=== PATIENT | male | born 1980 | race Caucasian/White ===

== ENCOUNTER 2016-09-09 07:13 | Emergency (ER) | payer BC ==
[2016-09-09 07:26] VITALS: BP 128/88
--- NOTE | 2016-09-09 07:27 | UC ---
Throat Pain/Nasal Wiliam HPI - HPI Summary HPI Summary: The patient comes in today for: 1. Sore throat, body aches: Onset: 2 days. Palliative/provocative: Moving and swallowing makes it worse. Quality: Aches of the body, scratchy throat. Region: Throat, and general body ache. Severity: throat: 4/10, and body: 7/10 Time: Constant. Associated symptoms: Flu exposure: Strep exposure: and daughter just got off antibiotics for strep. Fevers: None. Dayquil taken yesterday, helped a "little bit." * - History of Current Complaint Stated Complaint: SORE THROAT,ACHY Time Seen by Provider: 09/09/16 07:21 Hx Obtained From: Patient - Allergies/Home Medications Allergies/Adverse Reactions: Allergies Allergy/AdvReac Type Severity Reaction Status Date / Time Amoxicillin Allergy Rash Verified 09/09/16 07:22 Phenobarbital Allergy Rash Verified 09/09/16 07:22 Codeine AdvReac Vomiting Verified 09/09/16 07:22 Home Medications: Home Medications Glimepiride (NF) 2 mg PO DAILY 09/09/16 [History Confirmed 09/09/16] PMH/Surg Hx/FS Hx/Imm Hx Previously Healthy: No Endocrine History Of: Reports: Diabetes Denies: Thyroid Disease, Hyperthyroidism, Hypothyroidism, Dyslipidemia Cardiovascular History Of: Denies: Cardiac Disorders, Hypertension, Pacemaker/ICD, Myocardial Infarction , Congestive Heart Failure, Atrial Fibrillation, Deep Vein Thrombosis, Bleeding Disorders Respiratory History Of: Denies: COPD, Asthma, Bronchitis, Pneumonia, Pulmonary Embolism GI/ History Of: Denies: Gastroesophageal Reflux, Ulcer, Gastrointestinal Bleed, Gall Bladder Disease, Kidney Stones, Diverticulitis, Renal Disease, Urosepsis Neurological History Of: Denies: TIA, CVA, Dementia, Seizures, Migraine Psychological History Of: Denies: Anxiety, Depression, Bipolar Disorder, Schizophrenia, Post Traumatic Stress Disorder Cancer History Of: Denies: Lung Cancer, Colorectal Cancer, Breast Cancer, Prostate Cancer, Cervical Cancer Other History Of: Negative For: HIV, Hepatitis B, Hepatitis C, Anticoagulant Therapy - Family History Known Family History: Positive: Cardiac Disease, Hypertension - Social History Occupation: Employed Full-time Lives: With Family Alcohol Use: Rare Substance Use Type: None Smoking Status (MU): Former Smoker Review of Systems Constitutional: Negative Skin: Negative Eyes: Negative ENT: Sore Throat, Nasal Discharge - Yellowish, mucous, but no sinus pressure. Respiratory: Negative, Cough - "Very little, dry." Cardiovascular: Negative Gastrointestinal: Negative Genitourinary: Negative All Other Systems Reviewed And Are Negative: Yes Physical Exam Triage Information Reviewed: Yes Appearance: Well-Appearing, No Pain Distress, Well-Nourished Vital Signs Reviewed: Yes Eyes: Positive: Conjunctiva Clear. Negative: Discharge ENT: Positive: Pharyngeal erythema. Negative: Nasal congestion, Nasal drainage , TM bulging, TM dull, TM red, Tonsillar swelling, Tonsillar exudate Dental: Negative: Gross Decay/Caries @, Dental Fracture @ Neck: Positive: Supple, Nontender, No Lymphadenopathy. Negative: Nuchal Rigidity Respiratory: Positive: Chest non-tender, Lungs clear, No respiratory distress, No accessory muscle use. Negative: Crackles, Wheezing Cardiovascular: Positive: RRR, No Murmur Abdomen Description: Positive: Nontender, No Organomegaly, Soft. Negative: Distended, Guarding Musculoskeletal: Positive: Strength Intact, ROM Intact, No Edema Neurological: Positive: Alert, Muscle Tone Normal Psychological: Positive: Age Appropriate Behavior, Consolable Skin: Negative: rashes, breakdown Diagnostics - Laboratory Diagnostic Studies Completed/Ordered: Strep: (+). Flu: (-) Throat Pain/Nasal Course/Dx - Differential Dx/Diagnosis Differential Diagnosis/HQI/PQRI: Laryngitis, Pharyngitis, Tonsillitis Provider Diagnoses: Strep pharyngitis Discharge - Discharge Plan Condition: Stable Disposition: HOME Patient Education Materials: Strep Throat (ED) Additional Instructions: Please see your primary care provider as needed. If you have any problems, be seen again at that time.
== END 2016-09-09 07:57 | disposition home or self-care (01) ==
LOC: UCCORT 07:13
DX: J02.0 Streptococcal pharyngitis (principal); E11.9 Type 2 diabetes mellitus without complications; Z87.891 Personal history of nicotine dependence
CPT/HCPCS: 87502; 87651; 99202; G0463

== ENCOUNTER 2017-06-18 19:03 | Emergency (ER) | payer BC ==
[2017-06-18 19:44] VITALS: BP 146/90
--- NOTE | 2017-06-18 20:15 | UC ---
Laceration HPI - HPI Summary HPI Summary: pt c/o laceration to palm of right hand. Bleeding controlled prior to arrival at clinic - History Of Current Complaint Chief Complaint: UCLaceration Stated Complaint: RIGHT PALM LAC Time Seen by Provider: 06/18/17 19:44 Hx Obtained From: Patient Laceration Location: Hand Mechanism Of Injury: Sharp Trauma Onset/Duration: Sudden Onset Severity: Mild Related History: Dominant Hand Right - Allergies/Home Medications Allergies/Adverse Reactions: Allergies Allergy/AdvReac Type Severity Reaction Status Date / Time Amoxicillin Allergy Rash Verified 06/18/17 19:43 Phenobarbital Allergy Rash Verified 06/18/17 19:43 Codeine AdvReac Vomiting Verified 06/18/17 19:43 PMH/Surg Hx/FS Hx/Imm Hx Previously Healthy: Yes Other History Of: Negative For: HIV, Hepatitis B, Hepatitis C, Anticoagulant Therapy - Surgical History Surgical History: Yes Surgery Procedure, Year, and Place: Left Knee Arthroscopy, ~1995; Pyloric Stenosis as an infant - Family History Known Family History: Positive: Cardiac Disease, Hypertension - Social History Occupation: Employed Full-time Lives: With Family Alcohol Use: Occasionally Substance Use Type: None Smoking Status (MU): Former Smoker Type: Cigarettes Amount Used/How Often: 1/2 PPD Length of Time of Smoking/Using Tobacco: 6 Years Have You Smoked in the Last Year: No - Immunization History Most Recent Influenza Vaccination: yes 2016 Vaccination Up to Date: Yes Review of Systems Constitutional: Negative Skin: Other - laceration right palm Eyes: Negative ENT: Negative Respiratory: Negative Cardiovascular: Negative Gastrointestinal: Negative Genitourinary: Negative Motor: Negative Neurovascular: Negative Musculoskeletal: Negative Neurological: Negative Psychological: Negative Is Patient Immunocompromised?: No All Other Systems Reviewed And Are Negative: Yes Physical Exam Triage Information Reviewed: Yes Appearance: Well-Appearing Vital Signs: Initial Vital Signs Temp 97.7 F 06/18/17 19:39 Pulse 82 06/18/17 19:39 Resp 18 06/18/17 19:39 BP 146/90 06/18/17 19:39 Pulse Ox 97 06/18/17 19:39 Vital Signs Reviewed: Yes Eye Exam: Normal ENT Exam: Normal Dental Exam: Normal Neck exam: Normal Respiratory: Positive: No respiratory distress Musculoskeletal Exam: Normal Neurological Exam: Normal Psychological Exam: Normal Skin Exam: Other - laceration right hand palm Laceration Repair - Laceration Repair 1 Description: Linear Laceration Size After Repair: Length (cm) - 2, Width (mm) - 2, Depth (mm) - 1 Modified For Repair: No Irrigation With Pressure Irrigation Device: Yes Closure Material: Skin Adhesive Closure Method: Single Layer Suture Of: Skin Laceration Course/Dx - Differential Dx - Laceration/Wound Differental Diagnoses: Laceration Provider Diagnoses: lacertion repair to right hand, palm, with skin adhesive. Discharge - Discharge Plan Condition: Stable Disposition: HOME Patient Education Materials: Skin Adhesive Care (ED) Referrals: Abigail Javier NP [Primary Care Provider] - If Needed
== END 2017-06-18 20:23 | disposition home or self-care (01) ==
LOC: UCCORT 19:03
DX: S61.411A Laceration without foreign body of right hand, initial encounter (principal); W45.8XXA Other foreign body or object entering through skin, initial encounter; Y93.9 Activity, unspecified; Y92.9 Unspecified place or not applicable; Z88.1 Allergy status to other antibiotic agents; Z88.5 Allergy status to narcotic agent; Z88.8 Allergy status to other drugs, medicaments and biological substances; Z87.891 Personal history of nicotine dependence
CPT/HCPCS: 12001; 99212; G0463

== ENCOUNTER 2017-12-11 09:11 | Emergency (ER) | payer BC ==
[2017-12-11 09:28] VITALS: BP 149/94
--- NOTE | 2017-12-11 10:03 | UC ---
Abdominal Pain Male HPI - HPI Summary HPI Summary: Daughter had vomiting and diarrhea a few days ago. He now has diarrhea starting yesterday but no vomiting. No fever, no blood in stool. There is discomfort and "tightness" all day in the periumbilical area. No prior medical problems except pyloric stenosis as a child. - History of Current Complaint Chief Complaint: UCGI Stated Complaint: GASTRO COMP Time Seen by Provider: 12/11/17 09:46 Hx Obtained From: Patient Onset/Duration: Gradual Onset, Lasting Hours Timing: Constant Severity Initially: Severe Severity Currently: Severe - Pain is not severe but diarrhea is quite frequent. Pain Intensity: 5 Location: Other - jailyn umbilical. Character: Aching, Colicy, Cramping, Dull Aggravating Factor(s): Nothing Alleviating Factor(s): Nothing Associated Signs And Symptoms: Positive: Decreased Appetite, Nausea, Diarrhea. Negative: Fever, Cough, Chest Pain, Urinary Symptoms, Vomiting - Allergies/Home Medications Allergies/Adverse Reactions: Allergies Allergy/AdvReac Type Severity Reaction Status Date / Time amoxicillin Allergy Rash Verified 12/11/17 09:23 codeine Allergy Vomiting Verified 12/11/17 09:23 phenobarbital Allergy Rash Verified 12/11/17 09:23 Home Medications: Home Medications Cetirizine* [ZyrTEC 10 MG TAB*] 10 mg PO DAILY 12/11/17 [History Confirmed 12/11] PMH/Surg Hx/FS Hx/Imm Hx Previously Healthy: Yes Other History Of: Negative For: HIV, Hepatitis B, Hepatitis C, Anticoagulant Therapy - Surgical History Surgical History: Yes Surgery Procedure, Year, and Place: Left Knee Arthroscopy, ~1995; Pyloric Stenosis as an - Family History Known Family History: Positive: Cardiac Disease, Hypertension - Social History Lives: With Family Alcohol Use: Rare Substance Use Type: None Smoking Status (MU): Former Smoker Type: Cigarettes Amount Used/How Often: 1/2 PPD Length of Time of Smoking/Using Tobacco: 6 Years Have You Smoked in the Last Year: No - Immunization History Most Recent Influenza Vaccination: yes 2017 Vaccination Up to Date: Yes Review of Systems Gastrointestinal: Diarrhea All Other Systems Reviewed And Are Negative: Yes Physical Exam Triage Information Reviewed: Yes Appearance: Well-Nourished - Non toxic. Vital Signs: Initial Vital Signs Temp 99.9 F 12/11/17 09:22 Pulse 108 12/11/17 09:22 Resp 22 12/11/17 09:22 BP 149/94 12/11/17 09:22 Pulse Ox 98 12/11/17 09:22 Vital Signs Reviewed: Yes Eye Exam: Normal Eyes: Positive: Conjunctiva Clear. Negative: Conjunctiva Inflamed ENT: Positive: Hearing grossly normal, Pharynx normal Neck exam: Normal Neck: Positive: Supple, Nontender, No Lymphadenopathy. Negative: Nuchal Rigidity Respiratory: Positive: Lungs clear, Normal breath sounds, No respiratory distress, No accessory muscle use. Negative: Respiratory distress, Decreased breath sounds, Accessory muscle use, Crackles, Rhonchi, Stridor Cardiovascular: Positive: No Murmur, Pulses Normal, Brisk Capillary Refill Abdominal Exam: Other - diffuse mild appearing tenderness worse in the hypogastric area. Abdomen Description: Positive: Soft. Negative: CVA Tenderness (R), CVA Tenderness (L), Distended, Guarding Musculoskeletal: Positive: Strength Intact, ROM Intact, No Edema Neurological: Positive: Alert, Muscle Tone Normal. Negative: Fatigued Psychological: Positive: Age Appropriate Behavior Skin: Negative: rashes Abd Pain Male Course/Dx - Course Course Of Treatment: NO vomiting. Mucous membranes moist. We discussed oral re hydration techniques and fluids. No vomiting. Tylenol, bentyl, pepto bismol, zofran. He agrees to return tomorrow if not better. - Differential Dx/Clinical Impression Provider Diagnoses: diarrhea. abdominal pain Discharge - Sign-Out/Discharge Documenting (check all that apply): Discharge/Admit/Transfer - Discharge Plan Condition: Good Disposition: HOME Patient Education Materials: Acute Diarrhea (ED) Forms: *Work Release Referrals: Abigail Javier NP [Primary Care Provider] - Additional Instructions: Tylenol and peptobismol over the counter. Water mixed with gatorade 1 sip every minute all day. - Billing Disposition and Condition Condition: GOOD Disposition: HOME
== END 2017-12-11 10:08 | disposition home or self-care (01) ==
LOC: UCCORT 09:11
DX: Z88.5 Allergy status to narcotic agent (principal); Z88.0 Allergy status to penicillin; Z88.8 Allergy status to other drugs, medicaments and biological substances
CPT/HCPCS: 99212; G0463

== ENCOUNTER 2018-05-05 07:24 | Emergency (ER) | payer BC ==
[2018-05-05 07:36] VITALS: BP 146/89
--- NOTE | 2018-05-05 08:16 | UC ---
Throat Pain/Nasal Wiliam HPI - HPI Summary HPI Summary: The patient is a 37-year-old male with a history of seasonal allergic rhinitis. He takes Zyrtec for his symptoms. Over the past few days he has had a marked worsening of symptoms with severe sinus pressure and pain. He felt feverish over the weekend. He has had no chest pain or shortness of breath. He is a diabetic. - History of Current Complaint Chief Complaint: UCGeneralIllness Stated Complaint: SINUS COMPLAINT Time Seen by Provider: 05/05/18 07:54 Hx Obtained From: Patient Onset/Duration: Gradual Onset, Lasting Days Severity: Mild Pain Intensity: 3 Pain Scale Used: 0-10 Numeric Cough: Nonproductive Associated Signs & Symptoms: Positive: Negative Related History: Seasonal Allergies - Epiglottits Risk Factors Epiglottis Risk Factors: Negative - Allergies/Home Medications Allergies/Adverse Reactions: Allergies Allergy/AdvReac Type Severity Reaction Status Date / Time amoxicillin Allergy Rash Verified 05/05/18 07:34 codeine Allergy Vomiting Verified 05/05/18 07:34 phenobarbital Allergy Rash Verified 05/05/18 07:34 Home Medications: Home Medications Dm/Acetaminophen/Doxylamine [Night Time Multi-Symptom] 2 cap PO ONCE 05/05/18 [ History Confirmed 05/05/18] PMH/Surg Hx/FS Hx/Imm Hx Previously Healthy: Yes Endocrine History: Diabetes Other History Of: Negative For: HIV, Hepatitis B, Hepatitis C, Anticoagulant Therapy - Surgical History Surgical History: Yes Surgery Procedure, Year, and Place: Left Knee Arthroscopy, ~1995; Pyloric Stenosis as an infant - Family History Known Family History: Positive: Cardiac Disease, Hypertension, Diabetes - Social History Alcohol Use: None Substance Use Type: None Smoking Status (MU): Former Smoker Type: Cigarettes Amount Used/How Often: 1/2 PPD Length of Time of Smoking/Using Tobacco: 6 Years Have You Smoked in the Last Year: No - Immunization History Most Recent Influenza Vaccination: yes 2017 Vaccination Up to Date: Yes Review of Systems Constitutional: Negative Skin: Negative Eyes: Negative ENT: Nasal Discharge, Sinus Congestion, Sinus Pain/Tenderness Respiratory: Negative Cardiovascular: Negative Gastrointestinal: Negative Genitourinary: Negative Motor: Negative Neurovascular: Negative Musculoskeletal: Negative Neurological: Negative Psychological: Negative Is Patient Immunocompromised?: No All Other Systems Reviewed And Are Negative: Yes Physical Exam Triage Information Reviewed: Yes Appearance: Well-Appearing, No Pain Distress, Well-Nourished Vital Signs: Initial Vital Signs Temp 97.2 F 05/05/18 07:30 Pulse 88 05/05/18 07:30 Resp 14 05/05/18 07:30 BP 146/89 05/05/18 07:30 Pulse Ox 98 05/05/18 07:30 Vital Signs Reviewed: Yes Eyes: Positive: Conjunctiva Clear ENT: Positive: Hearing grossly normal, Nasal congestion, Nasal drainage, Sinus tenderness, Uvula midline. Negative: Tonsillar swelling, Tonsillar exudate Dental Exam: Normal Neck: Positive: Supple, Nontender, No Lymphadenopathy Respiratory: Positive: Lungs clear, Normal breath sounds, No respiratory distress Cardiovascular: Positive: RRR, No Murmur Musculoskeletal: Positive: ROM Intact, No Edema Neurological: Positive: Alert Psychological Exam: Normal Skin Exam: Normal Throat Pain/Nasal Course/Dx - Differential Dx/Diagnosis Provider Diagnoses: acute sinusitis. seasonal allergic rhinnitis Discharge - Sign-Out/Discharge Documenting (check all that apply): Patient Departure All imaging exams completed and their final reports reviewed: No Studies - Discharge Plan Condition: Stable Disposition: HOME Prescriptions: Azithromycin TAB* [Zithromax TAB*] 250 mg PO DAILY #6 tab Patient Education Materials: Sinusitis (ED) Referrals: Abigail Javier NP [Primary Care Provider] - 7 Days Additional Instructions: warm compression recheck for new or worsening symptoms - Billing Disposition and Condition Condition: STABLE Disposition: Home
== END 2018-05-05 08:25 | disposition home or self-care (01) ==
LOC: UCCORT 07:24
DX: J01.90 Acute sinusitis, unspecified (principal); J30.2 Other seasonal allergic rhinitis; E11.9 Type 2 diabetes mellitus without complications; Z88.0 Allergy status to penicillin; Z88.5 Allergy status to narcotic agent; Z88.8 Allergy status to other drugs, medicaments and biological substances
CPT/HCPCS: 99212; G0463

== ENCOUNTER 2018-11-07 11:29 | Emergency (ER) | payer BC ==
[2018-11-07 11:56] VITALS: BP 137/96
--- NOTE | 2018-11-07 12:34 | UC ---
Respiratory Complaint HPI - HPI Summary HPI Summary: nasal congestion x 2 weeks now with 2-3 day hx facial pressure and pain/chills and upper dental pain - History of Current Complaint Chief Complaint: UCRespiratory Stated Complaint: SINUS CONCERN Time Seen by Provider: 11/07/18 12:24 Hx Obtained From: Patient Onset/Duration: Gradual Onset, Lasting Days Timing: Constant Severity Initially: Mild Severity Currently: Moderate Pain Intensity: 6 Pain Scale Used: 0-10 Numeric Character: Cough: Nonproductive Aggravating Factors: Nothing Alleviating Factors: Nothing Associated Signs And Symptoms: Positive: URI, Nasal Congestion, Sinus Discomfort - Allergies/Home Medications Allergies/Adverse Reactions: Allergies Allergy/AdvReac Type Severity Reaction Status Date / Time amoxicillin Allergy Rash Verified 11/07/18 11:52 codeine Allergy Vomiting Verified 11/07/18 11:52 phenobarbital Allergy Rash Verified 11/07/18 11:52 PMH/Surg Hx/FS Hx/Imm Hx Previously Healthy: Yes Endocrine History: Diabetes Other History Of: Negative For: HIV, Hepatitis B, Hepatitis C, Anticoagulant Therapy - Surgical History Surgical History: Yes Surgery Procedure, Year, and Place: Left Knee Arthroscopy, ~1995; Pyloric Stenosis as an - Family History Known Family History: Positive: Cardiac Disease, Hypertension, Diabetes - Social History Alcohol Use: None Substance Use Type: None Smoking Status (MU): Former Smoker Type: Cigarettes Amount Used/How Often: 1/2 PPD Length of Time of Smoking/Using Tobacco: 6 Years Have You Smoked in the Last Year: No - Immunization History Most Recent Influenza Vaccination: yes 2017 Vaccination Up to Date: Yes Review of Systems All Other Systems Reviewed And Are Negative: Yes Constitutional: Positive: Fatigue Skin: Positive: Negative Eyes: Positive: Negative ENT: Positive: Dental Pain, Nasal Discharge, Sinus Congestion, Sinus Pain/ Tenderness Respiratory: Positive: Cough Cardiovascular: Positive: Negative Gastrointestinal: Positive: Negative Genitourinary: Positive: Negative Motor: Positive: Negative Neurovascular: Positive: Negative Musculoskeletal: Positive: Negative Neurological: Positive: Negative Psychological: Positive: Negative Physical Exam Triage Information Reviewed: Yes Appearance: Well-Appearing, No Pain Distress, Well-Nourished Vital Signs: Initial Vital Signs Temp 97.9 F 11/07/18 11:53 Pulse 89 11/07/18 11:53 Resp 16 11/07/18 11:53 BP 137/96 11/07/18 11:53 Pulse Ox 98 11/07/18 11:53 Vital Signs Reviewed: Yes Eyes: Positive: Conjunctiva Clear ENT: Positive: Hearing grossly normal, Nasal congestion, Nasal drainage, TMs normal, Sinus tenderness, Uvula midline. Negative: Tonsillar swelling, Tonsillar exudate, Trismus, Muffled voice, Hoarse voice Dental Exam: Normal Neck: Positive: Supple, Nontender, No Lymphadenopathy Respiratory: Positive: Lungs clear, Normal breath sounds, No respiratory distress, No accessory muscle use Cardiovascular: Positive: RRR, No Murmur Musculoskeletal: Positive: ROM Intact, No Edema Neurological: Positive: Alert Psychological Exam: Normal Skin Exam: Normal Respiratory Course/Dx - Differential Dx/Diagnosis Provider Diagnosis: Acute sinusitis, Elevated BP without diagnosis of hypertension Discharge - Sign-Out/Discharge Documenting (check all that apply): Patient Departure All imaging exams completed and their final reports reviewed: No Studies - Discharge Plan Condition: Good Disposition: HOME Prescriptions: Azithromycin TAB* [Zithromax TAB*] 250 mg PO DAILY #6 tab Patient Education Materials: Sinusitis (ED) Referrals: Abigail Javier NP [Primary Care Provider] - 7 Days (if not better, also BP recheck in 2-12 weeks) - Billing Disposition and Condition Condition: GOOD Disposition: Home
== END 2018-11-07 12:42 | disposition home or self-care (01) ==
LOC: UCCORT 11:29
DX: J01.90 Acute sinusitis, unspecified (principal); R09.81 Nasal congestion; R03.0 Elevated blood-pressure reading, without diagnosis of hypertension; E11.9 Type 2 diabetes mellitus without complications; Z87.891 Personal history of nicotine dependence; Z88.0 Allergy status to penicillin; Z88.5 Allergy status to narcotic agent; Z88.8 Allergy status to other drugs, medicaments and biological substances
CPT/HCPCS: 99212; G0463

== ENCOUNTER 2019-08-09 09:21 | Emergency (ER) | payer BC ==
--- OUTSIDE RECORDS SUMMARY | 2019-08-09 09:56 | XMS REPORT | Continuity of Care Document ---
:1980 External Reference #:[id number] Author Name Massimo Javier FNP Address [address] [place] [id number] Care Team Providers Name Role Phone Massimo Javier LIFE INSURANCE SPECIALIST - Nurse Care Team Information Rf Test Technician Practitioner Problems Active Problems Provider Date Diabetes mellitus Massimo Javier FNP Onset: 10/10/2015 Sleep apnea Massimo Javier FNP Onset: 12/18/2016 Note: mild Document: 10/30/16 - Sleep Study Result/[place] Social History Type Date Description Comments Sex Unknown ETOH Use Denies alcohol use Tobacco Use Start: Unknown Patient denies history of smoking Smoking Status Reviewed: 07/21/19 Patient denies history of smoking Allergies, Adverse Reactions, Alerts Active Allergies Reaction Severity Comments Date Metformin dizziness 09/15/2013 Penicillins 08/26/2015 Erythromycin 03/28/2015 Amoxicillin 08/26/2015 Phenobarbital 03/28/2015 Codeine 03/28/2015 Medications Active Medications SIG Qnty Indications Ordering Date Provider Pioglitazone HCL 2 tabs PO Once 180tabs [place], 02/09/2019 15mg Daily Massimo Tablets SUGARCANE RESEARCH TECHNICIAN Lancets use once a day 100units E11.9 [place], 06/24/2018 28G Misc for blood sugar Massimo testing dx e11.9 [facility] Freestyle Lite Test Test Blood 100units [place], 10/29/2017 Sugars Two Times Massimo, Strip A Day SUGARCANE RESEARCH TECHNICIAN Glimepiride Take One Tablet 180tabs E11.9 [place], 12/21/2016 2mg Tablets By Mouth Twice A Jenfer, Day SUGARCANE RESEARCH TECHNICIAN Zyrtec Allergy 1 tab by mouth 90tabs [place], 10mg every night Jenniferleigh, Tablets SUGARCANE RESEARCH TECHNICIAN History Medications Invokana take one tablet 30tabs E11.9 Yaya, Massimo, 01/21/2019 - 100mg by mouth every SUGARCANE RESEARCH TECHNICIAN 02/09/2019 Tablets day in the morning on an empty stomach Immunizations CPT Code Status Date Vaccine Lot # [id number] Given 06/24/2018 Influenza Virus Vaccine, Quadrivalent, 36 Mos+, [id number] Given 06/24/2018 Hepatitis A Vaccine Adult Dosage [id number] Given 05/10/2016 Influenza Virus Vaccine Split Virus Use For Individual 3Yr Older Vital Signs Date Vital Result Comment 07/21/2019 3:23pm BP Systolic Sitting Left Arm 138 mmHg BP Diastolic Sitting Left Arm 84 mmHg Body Temperature 98.4 F Heart Rate 94 /min Respiratory Rate 18 /min Height 68.5 inches 5'8.50" Weight 237.00 lb BMI (Body Mass Index) 35.5 kg/m2 BSA (Body Surface Area) 2.21 m2 [place] body weight in kilograms 71 kg O2 % BldC Oximetry 98 % 03/04/2019 3:11pm BP Systolic 134 mmHg BP Diastolic 82 mmHg Body Temperature 98.5 F Heart Rate 85 /min Height 68.5 inches 5'8.50" Weight 227.00 lb BMI (Body Mass Index) 34.0 kg/m2 BSA (Body Surface Area) 2.17 m2 [place] body weight in kilograms 71 kg O2 % BldC Oximetry 97 % Results Test Acquired Facility Test Result H/L Range Note Date Glycohemoglobin A1c 03/04/[address] Glycohemoglobin 7.1 % High 4.2-6.3 1, [address] (A1c) [place] [address] [phone] eAG 157 mg/dL Glycohemoglobin 01/21/[address] Glycohemoglobin 7.4 % High 4.2-6.[address] (A1c) [place] [address] [phone] eAG 166 mg/dL Microalbumin,Random 01/21/[address] Microalbumin,Urine 22.5 < 20.[address] mg/[place] [address] [phone] LDL Cholesterol 01/21/[address] Cholesterol 176 <200 [address] mg/[place] [address] [phone] Triglycerides 318 mg/dL High <150 5 HDL Cholesterol 27 mg/dL Low >40 6 LDL-Cholesterol 85 mg/dL < 100 7 Comprehensive Metabolic 01/21/[address] Glucose 134 mg/dL High 74-106 Panel [address] [place] [address] [phone] BUN 25 mg/dL High 7-18 Creatinine 1.4 mg/dL High 0.6-1.3 Glom Filtration Rate, Estimate 60 mL/min >60 If >60 mL/min >60 8 BUN/Creat 17.8 ratio Sodium 137 mmol/L Normal 136-145 Potassium 3.7 mmol/L Normal 3.5-5.1 Chloride 104 mmol/L Normal 98-107 Carbon Dioxide 23 mmol/L Normal 21-32 Anion Gap 10 mEq/L Normal 8-16 Calcium 8.5 mg/dL Normal 8.5-10.1 Total Protein 7.9 g/dL Normal 6.4-8.2 Albumin 4.1 g/dL Normal 3.4-5.0 Globulin 3.8 g/dL Normal 1.9-4.3 Alb/Glob 1.1 ratio Bilirubin,Total 0.5 mg/dL Normal 0.2-1.0 Sgot/Ast 25 U/L Normal 15-37 SGPT/Alt 58 U/L Normal 12-78 Alkaline Phosphatase 88 U/L Normal 45-117 1 E11.9 2 Elevated levels of HbA1c suggest the need for more aggressive treatment of glycemia. The [place] [employer] recommends that a primary goal of therapy should be a HbA1c of <7% and that physicians should re-evaluate the treatment regimen in patients with HbA1c values consistently >8%. 3 Elevated levels of HbA1c suggest the need for more aggressive treatment of glycemia. The [place] [employer] recommends that a primary goal of therapy should be a HbA1c of <7% and that physicians should re-evaluate the treatment regimen in patients with HbA1c values consistently >8%. 4 Reference Guidelines*: Desirable: ........... < 200 mg/dL Borderline High: ..... 200-239 mg/dL High: ................ >= 240 mg/dL * The National Cholesterol Education Program (NCEP) 5 Reference Guidelines*: Normal: ............. < 150 mg/dL Borderline High: .... 150-199 mg/dL High: ............... 200-499 mg/dL Very High: .......... > 500 mg/dL * Source: National Cholesterol Education Program (NCEP) 6 Reference Guidelines*: Low HDL: ..... < 40 mg/dL Normal: ..... 40-60 mg/dL Desirable: ... > 60 mg/dL *The National Cholesterol Education Program(NCEP) 7 Reference Guidelines*: Optimal:........... <100 mg/dL Near Optimal....... 100-129 mg/dL Borderline High.... 130-159 mg/dL High............... 160-189 mg/dL Very High.......... >=190 mg/dL * Source: National Cholesterol Education Program (NCEP) 8 Note: Persistent reduction for 3 months or more in an eGFR <60 mL/min/1.73 m2 defines CKD. Patients with eGFR values >/=60 mL/min/1.73 m2 may also have CKD if evidence of persistent proteinuria is present. The original MDRD equation for estimated GFR is not valid for patients less than 18 years of age. Additional information may be found at www.kdoqi.org. Procedures Date Code Description Status 10/10/2015 825059809 Diabetic Foot Exam Completed Medical Devices Description No Information Available Encounters Type Date Location Provider Dx Diagnosis Office Visit 07/21/2019 Family Luis Daniel Javier, E11.9 Type 2 diabetes 3:30p Erich Keys, mellitus without SUGARCANE RESEARCH TECHNICIAN complications Office Visit 03/04/2019 Family Luis Daniel Javier, E11.9 Type 2 diabetes 3:15p Erich Keys, mellitus without SUGARCANE RESEARCH TECHNICIAN complications Office Visit 01/21/2019 Family Luis Daniel Javier, Z00.00 Encntr for general 3:00p [place] MARYBETH Keys adult medical exam SUGARCANE RESEARCH TECHNICIAN w/o abnormal findings E11.9 Type 2 diabetes mellitus without complications Assessments Date Code Description Provider 07/21/2019 E11.9 Type 2 diabetes mellitus without Cledgardo, Massimo, SUGARCANE RESEARCH TECHNICIAN complications 03/04/2019 E11.9 Type 2 diabetes mellitus without Cledgardo, Massimo, SUGARCANE RESEARCH TECHNICIAN complications 01/21/2019 Z00.00 Encounter for general adult medical Massimo Javier FNP examination without abno 01/21/2019 E11.9 Type 2 diabetes mellitus without Yaya, Massimo, FRANCOIS complications Plan of Treatment Future Appointment(s):10/20/2019 3:45 pm - Massimo Javier FNP at [facility] Functional Status Functional Condition Comment Date Status Contacts Active Mental Status Description No Information Available Referrals Description No Information Available
--- NOTE | 2019-08-09 10:05 | UC ---
Throat Pain/Nasal [place] HPI - HPI Summary HPI Summary: 39-year-old male with cold symptoms over the past 3 days with head congestion and occasional nonproductive cough. - History of Current Complaint Stated Complaint: CONGESTION SORE THROAT COUGH Time Seen by Provider: 08/09/19 09:55 Hx Obtained From: Patient Onset/Duration: Gradual Onset Severity: Mild Associated Signs & Symptoms: Positive: Sinus Discomfort, Nasal Discharge - Allergies/Home Medications Allergies/Adverse Reactions: Allergies Allergy/AdvReac Type Severity Reaction Status Date / Time amoxicillin Allergy Rash Verified 08/09/19 10:12 codeine Allergy Vomiting Verified 08/09/19 10:12 phenobarbital Allergy Rash Verified 08/09/19 10:12 Home Medications: Home Medications D-Methorphan/PE/Acetaminophen [Vicks Dayquil Liquicaps] 2 tab PO SEE INSTRUCTIONS PRN 08/09/19 [History Confirmed 08/09/19] Pioglitazone TAB* [Actos TAB*] 15 mg PO DAILY 08/09/19 [History Confirmed ] PMH/Surg Hx/FS Hx/Imm Hx Previously Healthy: Yes Endocrine History: Diabetes - Type 2 diabetes Other History Of: Negative For: HIV, Hepatitis B, Hepatitis C, Anticoagulant Therapy - Surgical History Surgical History: Yes Surgery Procedure, Year, and Place: Left Knee Arthroscopy, ~1995; Pyloric Stenosis as an infant - Family History Known Family History: Positive: Cardiac Disease, Hypertension, Diabetes - Social History Lives: With Family Alcohol Use: None Substance Use Type: None Smoking Status (MU): Former Smoker Type: Cigarettes Amount Used/How Often: 1/2 PPD Length of Time of Smoking/Using Tobacco: 6 Years Have You Smoked in the Last Year: No - Immunization History Most Recent Influenza Vaccination: yes 2017 Vaccination Up to Date: Yes Review of Systems All Other Systems Reviewed And Are Negative: Yes ENT: Positive: Nasal Discharge, Sinus Congestion, Sinus Pain/Tenderness Respiratory: Positive: Cough - Patient states mildly productive cough only in the morning of yellow sputum. Is Patient Immunocompromised?: No Physical Exam Triage Information Reviewed: Yes Appearance: Well-Appearing, No Pain Distress, Well-Nourished Vital Signs Reviewed: Yes Eyes: Positive: Conjunctiva Clear ENT: Positive: Hearing grossly normal, Pharynx normal - Clear postnasal drainage., Nasal congestion, Nasal drainage - Clear nasal coryza., TMs normal, Sinus tenderness - Mildly tender over the maxillary sinuses., Uvula midline Neck: Positive: Supple, Nontender, No Lymphadenopathy Respiratory: Positive: Lungs clear, Normal breath sounds, No respiratory distress, No accessory muscle use Cardiovascular: Positive: RRR, No Murmur, Pulses Normal, Brisk Capillary Refill Musculoskeletal Exam: Normal Neurological Exam: Normal Psychological Exam: Normal Skin Exam: Normal Throat Pain/Nasal Course/Dx - Course Course Of Treatment: Patient is comfortable here. Although he thinks he has a sinus infection I feel this is more a viral upper respiratory illness which she is sharing with his daughter. He can do comfort measures and follow-up with his primary care provider in approximate for 5 days if no improvement. - Differential Dx/Diagnosis Provider Diagnosis: URI (upper respiratory infection) Discharge ED - Sign-Out/Discharge Documenting (check all that apply): Patient Departure All imaging exams completed and their final reports reviewed: No Studies - Discharge Plan Condition: Good Disposition: HOME Patient Education Materials: Upper Respiratory Infection (ED) Referrals: Abigail Javier NP [Primary Care Provider] - Additional Instructions: Increase fluids, [id number] medication as directed. Follow up with your primary care provider in approximately for 5 days if any worsening symptoms or if you start running a fever. - Billing Disposition and Condition Condition: GOOD Disposition: Home
[2019-08-09 10:11] VITALS: BP 130/82
== END 2019-08-09 10:33 | disposition home or self-care (01) ==
LOC: UCCORT 09:21
DX: J06.9 Acute upper respiratory infection, unspecified (principal); E11.9 Type 2 diabetes mellitus without complications; Z88.0 Allergy status to penicillin; Z88.5 Allergy status to narcotic agent; Z88.8 Allergy status to other drugs, medicaments and biological substances; Z87.891 Personal history of nicotine dependence; Z79.84 Long term (current) use of oral hypoglycemic drugs
CPT/HCPCS: 99211; G0463